=== PATIENT | female | born 1990 | race Caucasian/White ===

== ENCOUNTER 2016-11-24 10:36 | Inpatient (IN) | payer MEDICAID ==
[~2016-11-24] VITALS: Ht 157.5 cm; Wt 54.0 kg
[2016-11-24 10:46] VITALS: RESP 19; Ht 157.5 cm; Wt 54.0 kg
[2016-11-24] MEDS ORDERED: PRENAT PO (10:51)
--- NOTE | 2016-11-24 14:00 | RADRPT ---
PROCEDURE: US OB biophysical profile. CLINICAL INDICATION: decreased movements, spotting TECHNIQUE: Multiple sonographic images of the pelvis were obtained. The images were reviewed on a PACS workstation. COMPARISON: No prior studies are available for comparison. FINDINGS: There is a single viable intrauterine gestation. Cardiac activity is present with 137 beats per min [place]. There is a vertex presentation. The placenta is fundal. There is no evidence of placental abruption. There is a decreased amount of amniotic fluid with an ARTURO = 4.5 cm. Biophysical profile: movement 2/2 tone 2/2. breathing 2/2 ARTURO 0/2 Total 01/19 RPTAT: AA . IMPRESSION: Abnormal biophysical profile. Oligohydramnios. . .Kayode Amaya MD, Date Time Electronically viewed and signed by .Kayode Amaya MD, MD on 11/24/2016 14:00 .S/
[2016-11-24] MEDS ORDERED: MISOPROSTOL 200 MCG TAB PR PRN (16:00)
[2016-11-24] MEDS ORDERED: OXYTOCIN 30 UNITS/LR 500 ML IV SCH ×3 (16:00→21:15)
[2016-11-24] MEDS ORDERED: LIDOCAINE 1% (MPF) 30 ML INJ INJ PRN (16:00)
[2016-11-24] MEDS ORDERED: METHYLERGONOVINE 0.2 MG INJ IM PRN (16:00)
[2016-11-24] MEDS ORDERED: CARBOPROST 250 MCG INJ IM PRN (16:00)
[2016-11-24] MEDS ORDERED: IBUPROFEN 600 MG TAB PO PRN (16:00)
[2016-11-24] MEDS ORDERED: OXYTOCIN 30 UNITS/LR 500 ML IV PRN (16:00)
[2016-11-24] MEDS ORDERED: BUTORPHANOL 2 MG INJ IV PRN (16:00)
[2016-11-24] MEDS ORDERED: LACTATED RINGER'S 1,000 ML IV PRN (16:00)
--- NOTE | 2016-11-24 16:11 | TRIAGE ---
OB Triage Datetime Report Generated by CPN: 11/24/2016 16:11 Datetime: 11/24/2016 14:44 Stage of : OB Triage Maternal Assessment Level of Consciousness: Fully Conscious DTR's/Clonus: DTRs 1+ Headache: Denies Breath Sounds, Left: Clear and Equal Breath Sounds, Right: Clear and Equal Nausea/Vomiting: Denies RUQ Epigastric Pain: Denies Labor Evaluation Frequency: IRREGULAR Monitor Mode: External Duration (sec)2399: 40-60 Quality: Mild Pattern: Normal: <= 5 Contractions in 10 Minutes Resting Tone Bucks: Relaxed Heart Rate FHR Baseline Rate: 135 Monitor Mode: External US Variability: Moderate 6-25 bpm Accelerations: 15X15 Decelerations: Variable Category: Category I Pain Assessment Pain Scale: 4 Pain Presence: Intermittent Pain Type: Cramping Pain Location: Abdomen; Back Pain Goal: 3 Pain Relief Measures: Comfort Measures Datetime: 11/24/2016 13:45 Stage of : OB Triage Maternal Assessment Level of Consciousness: Fully Conscious DTR's/Clonus: DTRs 1+ Headache: Denies Breath Sounds, Left: Clear and Equal Breath Sounds, Right: Clear and Equal Nausea/Vomiting: Denies RUQ Epigastric Pain: Denies Labor Evaluation Frequency: IRREGULAR Monitor Mode: External Duration (sec)2399: 40-60 Quality: Mild Pattern: Normal: <= 5 Contractions in 10 Minutes Resting Tone Bucks: Relaxed Heart Rate FHR Baseline Rate: 135 Monitor Mode: External US Variability: Moderate 6-25 bpm Accelerations: 15X15 Decelerations: Variable Category: Category I Pain Assessment Pain Scale: 4 Pain Presence: Intermittent Pain Type: Cramping Pain Location: Abdomen; Back Pain Goal: 3 Pain Relief Measures: Comfort Measures Datetime: 11/24/2016 13:00 Stage of : OB Triage Maternal Assessment Level of Consciousness: Fully Conscious DTR's/Clonus: DTRs 1+ Headache: Denies Breath Sounds, Left: Clear and Equal Breath Sounds, Right: Clear and Equal Nausea/Vomiting: Denies RUQ Epigastric Pain: Denies Labor Evaluation Frequency: IRREGULAR Monitor Mode: External Duration (sec)2399: 40-60 Quality: Mild Pattern: Normal: <= 5 Contractions in 10 Minutes Resting Tone Bucks: Relaxed Heart Rate FHR Baseline Rate: 135 Monitor Mode: External US Variability: Moderate 6-25 bpm Accelerations: 15X15 Decelerations: Variable Category: Category I Pain Assessment Pain Scale: 4 Pain Presence: Intermittent Pain Type: Cramping Pain Location: Abdomen; Back Pain Goal: 3 Pain Relief Measures: Comfort Measures Datetime: 11/24/2016 12:00 Stage of : OB Triage Maternal Assessment Level of Consciousness: Fully Conscious DTR's/Clonus: DTRs 1+ Headache: Denies Breath Sounds, Left: Clear and Equal Breath Sounds, Right: Clear and Equal Nausea/Vomiting: Denies RUQ Epigastric Pain: Denies Labor Evaluation Frequency: IRREGULAR Monitor Mode: External Duration (sec)2399: 40-60 Quality: Mild Pattern: Normal: <= 5 Contractions in 10 Minutes Resting Tone Bucks: Relaxed Heart Rate FHR Baseline Rate: 135 Monitor Mode: External US Variability: Moderate 6-25 bpm Accelerations: 15X15 Decelerations: Variable Category: Category I Pain Assessment Pain Scale: 4 Pain Presence: Intermittent Pain Type: Cramping Pain Location: Abdomen; Back Pain Goal: 3 Pain Relief Measures: Comfort Measures Datetime: 11/24/2016 11:02 Maternal Assessment Level of Consciousness: Fully Conscious DTR's/Clonus: DTRs 1+ Headache: Denies Blurred Vision: No Respiratory Effort: Unlabored Breath Sounds, Left: Clear and Equal Breath Sounds, Right: Clear and Equal Nausea/Vomiting: Denies RUQ Epigastric Pain: Denies Facial Edema: None Labor Evaluation Frequency: 2-6 Monitor Mode: External Duration (sec)2399: 40-60 Quality: Mild Pattern: Normal: <= 5 Contractions in 10 Minutes Resting Tone Bucks: Relaxed Heart Rate FHR Baseline Rate: 135 Monitor Mode: External US Variability: Moderate 6-25 bpm Accelerations: 15X15 Decelerations: Variable Category: Category I Pain Assessment Pain Scale: 7 Pain Presence: Intermittent Pain Type: Cramping Pain Location: Abdomen; Back Pain Goal: 3 Pain Relief Measures: Comfort Measures Datetime: 11/24/2016 10:52 Maternal Assessment Level of Consciousness: Fully Conscious DTR's/Clonus: DTRs 1+ Headache: Denies Blurred Vision: No Respiratory Effort: Unlabored Breath Sounds, Left: Clear and Equal Breath Sounds, Right: Clear and Equal Nausea/Vomiting: Denies RUQ Epigastric Pain: Denies Facial Edema: None Labor Evaluation Frequency: 2-5 Monitor Mode: External Duration (sec)2399: 40-70 Quality: Mild Pattern: Normal: <= 5 Contractions in 10 Minutes Resting Tone Bucks: Relaxed Heart Rate FHR Baseline Rate: 130 Monitor Mode: External US Variability: Moderate 6-25 bpm Accelerations: 15X15 Decelerations: None Category: Category I Pain Assessment Pain Scale: 7 Pain Presence: Intermittent Pain Type: Cramping Pain Location: Back Pain Goal: 3 Vaginal Exam Membrane Status: Intact Datetime: 11/24/2016 10:45 Comments: PT REPOSITIONED , HEART RATE BACK TO BASELINE 135 BPM. DOEN FOR 60 SEC Datetime: 11/24/2016 10:42 EGA: 38.2 Datetime: 11/24/2016 10:40 Assessment Type: Triage Maternal Assessment Level of Consciousness: Fully Conscious DTR's/Clonus: DTRs 2+; No Clonus Headache: Denies Blurred Vision: No Respiratory Effort: Unlabored; Regular Rhythm; Equal Expansion Breath Sounds, Left: Clear and Equal Breath Sounds, Right: Clear and Equal Nausea/Vomiting: Denies RUQ Epigastric Pain: Denies Lower Extremities Edema: None Degree: None Upper Extremities Edema: None Degree: None Facial Edema: None Fall Risk Assessment History of Falling: (0) No Secondary Diagnosis: (0) No Ambulatory Aid: (0) Bedrest/Nurse Assist IV Therapy: (0) No Gait: (0) Normal/Bedrest/Immobile Mental Status: (0) Oriented to Own Ability Fall Score: 0 Fall Risk Score Definition: No Risk: No action required Datetime: 11/24/2016 10:30 Time of Arrival: 11/24/2016 10:30 Arrived By: Wheelchair Arrived From: Home Chief Complaint: PT CAME IN TO R/O LABOR Movement: Present Contractions: Regular Time Contractions Began: 11/24/2016 08:00 Contractions: 5-10 MIN Rupture of Membranes: Denies Vaginal Discharge: Denies Recent Sexual Intercouse: Denies Abdominal Trauma: Not Applicable Additional Patient Complaints: NONE Time Provider Notified: 11/24/2016 11:00 Provider Notified: SRINIVAS Initial Plan: MONITOR AND VE ROM + AND BPP
[2016-11-24] MEDS: LACTATED RINGER'S 1,000 ML IV SCH (16:30)
[2016-11-24] MEDS ORDERED: MISOPROSTOL 25 MCG CAPSULE PO SCH (17:00)
[2016-11-24 17:15] LABS: ADD SCAN DIFF NO
[2016-11-24 17:17] LABS: BASOPHILS % 0.3 % (0.0-2.0); EOSINOPHILS # 0.1 10^3/ul (0.0-0.5); HEMOGLOBIN 12.1 g/dl (12.0-16.0); LYMPHOCYTES # 1.6 10^3/ul (0.8-2.9); LYMPHOCYTES % 21.3 % (15.0-51.0); MEAN CORPUSCULAR HEMOGLOBIN 32.5 pg (29.0-33.0); MEAN CORPUSCULAR HGB CONC 33.6 g/dl (32.0-37.0); MEAN CORPUSCULAR VOLUME 96.8 fl (82.0-101.0); MEAN PLATELET VOLUME 10.3 fl (7.4-10.4); MONOCYTE # 0.6 10^3/ul (0.3-0.9); MONOCYTES % 7.6 % (0.0-11.0); NEUTROPHIL # 5.1 10^3/ul (1.6-7.5); NEUTROPHILS % 69.7 % (39.0-77.0); PLATELET COUNT 210 10^3/UL (140-415); RED BLOOD COUNT 3.72 10^6/ul (4.20-5.40); RED CELL DISTRIBUTION WIDTH 12.6 % (11.5-14.5); WHITE BLOOD COUNT 7.3 10^3/ul (4.8-10.8)
[2016-11-24 17:30] LABS: INR 0.9; PROTIME 12.1 Sec (12.2-14.2); PT RATIO 0.9
[2016-11-24 17:31] LABS: PARTIAL THROMBOPLASTIN TIME 22.6 Sec (25.0-35.0)
[2016-11-24] MEDS: MISOPROSTOL 25 MCG CAPSULE PO SCH ×2 (21:00→21:35)
[2016-11-24] MEDS ORDERED: AMPICILLIN 2 GM/NS (PMX) 100 ML IVPB ONE (21:30)
[2016-11-25] MEDS: LACTATED RINGER'S 1,000 ML IV SCH ×4 (00:23→20:44)
[2016-11-25] MEDS: MISOPROSTOL 25 MCG CAPSULE PO SCH ×2 (01:00→05:00)
[2016-11-25] MEDS ORDERED: FENTAnyl 2MCG/ML-ROPIV 0.2% 100 ML ONE (01:16)
[2016-11-25] MEDS ORDERED: DIPHENHYDRAMINE 50 MG INJ IV PRN (01:30)
[2016-11-25] MEDS ORDERED: FENTAnyl 2MCG/ML-ROPIV 0.2% 100 ML BAG EPI SCH (01:30)
[2016-11-25] MEDS ORDERED: NALOXONE (0.4 MG/ML) INJ IV PRN (01:30)
[2016-11-25] MEDS ORDERED: ONDANSETRON 4 MG INJ IV PRN (01:30)
[2016-11-25] MEDS: AMPICILLIN 1 GM/NS (PMX) 50 ML IVPB SCH ×3 (01:48→09:25)
--- NOTE | 2016-11-25 11:19 | HP ---
Date/Time of Note Date/Time of Note DATE: 11/25/16 TIME: 11:18 OB - History Hx of Present Free Text/Dictation @38+wks GA with SROM : 1 Para: 0 Care: Good Care Ultrasounds: Normal mid trimester US Obstetrical Complications: None Medical Complications: None Past Family/Social History * Past Medical, Surgical, Family and Obstetric Histories reviewed from chart. OB Admission Exam Vital Signs Vital Signs Vital Signs Date Time Temp Pulse Resp B/P Pulse Ox O2 Delivery O2 Flow Rate FiO2 11/24/16 10:46 98.0 19 7 Room Air Physical Exam HEENT: WNL Extremities: Normal Amniotic Fluid: Clear Heart Rate: 140's Accelerations: Accelerations Present Decelerations: No Decelerations Varibility: Moderate Contractions on Admission: 6-10 Minutes Apart Last 72 hours Lab Results CBC & BMP 11/24/16 16:15 OB Assessment/Plan Reason for admission: observation Induction Method: per Pitocin Protocol CATHY DEXTER M.D. Nov 25, 2016 11:19
--- NOTE | 2016-11-25 11:23 | LDN ---
Date/Time of Note Date/Time of Note DATE: 11/25/16 TIME: 11:19 Delivery Summary Medline episiotomy done: Due to small vulvar and vestibular space,the episiotomy was unavoidable After discussing it with the patient and explains the risks and benefits and taking her consent a 2 cm mediline episiotomy done Placenta Delivered: Spontaneously Meconium: none Episiotomy: Yes Indication for episiotomy Due to small vulvar and vestibular spaceand genital structure,the episiotomy was unavoidable After discussing it with the patient and explains the risks and benefits and taking her consent a 2 cm mediline episiotomy done Anesthesia type: Epidural Estimated blood loss: 200 Sponge & Needle done & correct: Yes All needle counts correct: Yes Any foreign bodies felt in the: No Problems: Delivery Information Sex Infant Sex: female Apgars 1 Minute: 9 5 Minute: 9 Suctioning Nose & mouth suctioned at ivone: Yes Delee suction performed: Yes Umbilical Cord Umbilical cord with: 3 Vessels Cord presentations: no nuchal cord Cord Blood was obtained: Yes Mother & Baby Disposition Disposition Mom & Baby to Maternity; Good: Yes Baby to NICU: No CATHY DEXTER M.D. Nov 25, 2016 11:23
[2016-11-25 12:05] VITALS: BP 104/66; PULSE 64; RESP 18
[2016-11-25] MEDS ORDERED: LANOLIN 7 GM TUBE TOP PRN (13:00)
[2016-11-25] MEDS ORDERED: MISOPROSTOL 200 MCG TAB PR PRN (13:00)
[2016-11-25] MEDS ORDERED: OXYTOCIN 30 UNITS/LR 500 ML IV PRN (13:00)
[2016-11-25] MEDS ORDERED: METHYLERGONOVINE 0.2 MG INJ IM PRN (13:00)
[2016-11-25] MEDS ORDERED: CARBOPROST 250 MCG INJ IM PRN (13:00)
[2016-11-25] MEDS: OXYCODONE/ACETAMINOPHEN (5/325) TAB PO PRN (14:29)
[2016-11-25 16:00] VITALS: BP 104/56; PULSE 66; RESP 16
[2016-11-25] MEDS: IBUPROFEN 600 MG TAB PO SCH ×2 (17:51→23:58)
[2016-11-25 19:40] VITALS: BP 119/75; PULSE 72; RESP 19
[2016-11-25] MEDS: SENNA/DOCUSATE NA (8.6MG/50MG) TAB PO SCH (20:44)
[2016-11-26 04:38] VITALS: BP 112/59; PULSE 62; RESP 20
[2016-11-26] MEDS: LACTATED RINGER'S 1,000 ML IV SCH ×3 (04:44→20:44)
[2016-11-26] MEDS: IBUPROFEN 600 MG TAB PO SCH ×4 (05:51→23:52)
[2016-11-26 07:38] LABS: ADD SCAN DIFF NO
[2016-11-26 07:44] LABS: BASOPHILS % 0.3 % (0.0-2.0); EOSINOPHILS # 0.1 10^3/ul (0.0-0.5); EOSINOPHILS % 1.1 % (0.0-7.0); HEMATOCRIT 30.2 % (37.0-47.0); HEMOGLOBIN 9.9 g/dl (12.0-16.0); LYMPHOCYTES # 1.6 10^3/ul (0.8-2.9); LYMPHOCYTES % 16.9 % (15.0-51.0); MEAN CORPUSCULAR HEMOGLOBIN 32.4 pg (29.0-33.0); MEAN CORPUSCULAR HGB CONC 32.8 g/dl (32.0-37.0); MEAN CORPUSCULAR VOLUME 98.7 fl (82.0-101.0); MEAN PLATELET VOLUME 9.8 fl (7.4-10.4); MONOCYTE # 0.6 10^3/ul (0.3-0.9); MONOCYTES % 6.2 % (0.0-11.0); NEUTROPHIL # 7.1 10^3/ul (1.6-7.5); NEUTROPHILS % 75.3 % (39.0-77.0); PLATELET COUNT 158 10^3/UL (140-415); RED BLOOD COUNT 3.06 10^6/ul (4.20-5.40); RED CELL DISTRIBUTION WIDTH 12.7 % (11.5-14.5); WHITE BLOOD COUNT 9.4 10^3/ul (4.8-10.8)
[2016-11-26 08:00] VITALS: BP 103/55; RESP 18
[2016-11-26] MEDS: SENNA/DOCUSATE NA (8.6MG/50MG) TAB PO SCH ×2 (09:42→21:02)
[2016-11-26] MEDS: OXYCODONE/ACETAMINOPHEN (5/325) TAB PO PRN (09:43)
[2016-11-26 15:50] VITALS: BP 99/56; PULSE 144; RESP 18
[2016-11-26 20:00] VITALS: BP 107/56; PULSE 72; RESP 18
[2016-11-27 04:00] VITALS: BP 105/63; PULSE 68; RESP 18
[2016-11-27] MEDS: LACTATED RINGER'S 1,000 ML IV SCH (04:44)
[2016-11-27] MEDS: IBUPROFEN 600 MG TAB PO SCH ×2 (05:33→11:53)
[2016-11-27 08:00] VITALS: BP 106/58; PULSE 64; RESP 19
[2016-11-27] MEDS: SENNA/DOCUSATE NA (8.6MG/50MG) TAB PO SCH (09:00)
--- NOTE | 2016-11-27 12:37 | DS ---
Date/Time of Note Date/Time of Note DATE: 11/27/16 TIME: 12:37 Obstetrical Discharge Record Final Diagnosis Final Diagnosis: Term delivered Vaginal Delivery Obstetrical Delivery: Spontaneous Condition on Discharge Physical Assessment Voiding: Yes Bowel Movement: Yes Breast: Soft, non-tender Fundus: Firm Calf Tenderness: No Patient Condition: Stable RANGEL GRAJEDA MD Nov 27, 2016 12:37
[2016-11-28] MEDS ORDERED: DIPHTH/TET/ACEL PERTUSS (ADULT) 0.5 ML VIAL IM* ONE (09:00)
== END 2016-11-27 13:40 | disposition home or self-care (01) | DRG 775 ==
LOC: OBT 10:36 → L-D 10:37 → OBT 14:19 → L-D 14:21 → PP1 11-25 12:26
PROVIDERS: ADMIT Obstetrics & Gynecology; ATTEND Obstetrics & Gynecology
PROC: 10E0XZZ Delivery of Products of Conception, External Approach (ICD-10-PCS; principal; 2016-11-25)
PROC: 0W8NXZZ Division of Female Perineum, External Approach (ICD-10-PCS; 2016-11-25)
DX: O80 Encounter for full-term uncomplicated delivery (principal); Z37.0 Single live birth; Z3A.38 38 weeks gestation of pregnancy
CPT/HCPCS: 62319; 76818; 84112; 85025; 85610; 85730; 86592; 86900; 86901; G0463; J0290; J1200; J2590; J3010; J7120

== ENCOUNTER 2017-12-17 08:05 | Emergency (ER) | END 2017-12-17 09:14 | disposition home or self-care (01) ==